=== PATIENT | female | born 1955 | race Caucasian/White ===

== ENCOUNTER 2017-05-21 07:22 | Day surgery (SDC) | payer MEDICAID, OTHER ==
[~2017-05-21] VITALS: Ht 162.6 cm; Wt 70.0 kg
[~2017-05-21 07:22] MED LIST: ACYC800T57 PO; BENA5TAB2 PO; GABA300C16 PO; GLIP5TAB13 PO
[2017-05-21 09:34] VITALS: Ht 162.6 cm; Wt 70.0 kg
[2017-05-21] MEDS ORDERED: VITAMIN D (09:48)
[2017-05-21 10:08] VITALS: BP 161/69; PULSE 62; RESP 12
--- NOTE | 2017-05-21 10:44 | OPPN ---
Date/Time of Note Date/Time of Note DATE: 05/21/17 TIME: 10:43 Operative Report Preoperative Diagnosis Screening Postoperative Diagnosis Internal hemorrhoids No colon neoplasm was identified Operation/Procedure Performed Colonoscopy Surgeon see signature line funeral home assistant None Anesthesia: moderate sedation Estimated blood loss: none Transfusion Required none Specimen None Grafts/Implants none Complications none YURIDIA BYRNES MD May 21, 2017 10:44
[2017-05-21] MEDS ORDERED: MIDAZOLAM 1 MG/ML 2 ML INJ ONE (10:53)
[2017-05-21] MEDS ORDERED: FENTAnyl 50 MCG/ML VIAL ONE (10:54)
[2017-05-21 11:15] VITALS: BP 144/52; PULSE 63; RESP 20
--- NOTE | 2017-05-21 14:53 | GILP ---
DATE OF PROCEDURE: NAME OF PROCEDURE: Colonoscopy. SURGEON: Yuridia Luna MD PREOPERATIVE DIAGNOSIS: Screening colonoscopy. POSTOPERATIVE DIAGNOSES 1. Colonoscopy all the way to the cecum. 2. Internal hemorrhoids. 3. No colon neoplasm was identified. INDICATION FOR THE PROCEDURE: Ms. Nolvia Rader is a 61-year-old female patient who was schedul ed for screening colonoscopy. The procedure and possible complications are well explained to the patient. The patient understood and consented to the procedure. DESCRIPTION OF PROCEDURE: Under the influence of fentanyl and Versed, the colonoscope was carefully introduced in the rectum and under direct vision, it was advanced all the way to the cecum. FINDINGS: The patient had internal hemorrhoids. No colon neoplasm was identified. She tolerated the procedure very well and there was no complication from the procedure. At the end of the procedures, she was awake with stable vital signs and she was discharged home to the care of her family. IMPRESSION: Please see postoperative diagnoses. PLAN: Next screening colonoscopy in 10 years. Dictated By: YURIDIA MONSIVAIS/ZA Conf#: [id number] DID#: [id number]
== END 2017-05-21 18:45 | disposition home or self-care (01) ==
LOC: GIL 07:22
PROVIDERS: ATTEND Internal Medicine Gastroenterology
DX: Z12.11 Encounter for screening for malignant neoplasm of colon (principal); K64.8 Other hemorrhoids; E11.9 Type 2 diabetes mellitus without complications; I10 Essential (primary) hypertension
CPT/HCPCS: 45378; 82962; J2250; J3010; Z7610